=== PATIENT | female | born 1980 | race Caucasian/White ===

== ENCOUNTER 2019-02-12 09:59 | Outpatient (CLI) | payer BC ==
--- NOTE | 2019-02-12 18:14 | RAD ---
CHEST TWO VIEWS: 02/12/19 The heart is normal in size and the lungs are clear. There is no infiltrate, effusion, or congestion. The trachea is midline. IMPRESSION: No acute thoracic finding. POS: HOME
== END 2019-02-12 10:00 | disposition home or self-care (01) ==
LOC: EEVIPCON 09:59 → BURRAD 09:59
PROVIDERS: ATTEND Physician Assistant
DX: R05 Cough (principal)
CPT/HCPCS: 71046